=== PATIENT | female | born 1945 | race Caucasian/White ===

== ENCOUNTER 2016-08-01 15:02 | Emergency (ER) | payer MEDICARE, BC ==
[~2016-08-01] VITALS: Ht 162.6 cm; Wt 81.6 kg
[~2016-08-01 15:02] MED LIST: CARV-39 PO; HYDR12.58 PO; IPRA12.9 PO
[2016-08-01 15:04] VITALS: BP 157/75
[2016-08-01] MEDS ORDERED: LIDOCAINE 1%-EPI 1:100K, 20ML SQ ONE (15:30)
== END 2016-08-01 16:39 | disposition home or self-care (01) ==
LOC: ED 16:00
DX: L03.317 Cellulitis of buttock (principal); J44.9 Chronic obstructive pulmonary disease, unspecified; I10 Essential (primary) hypertension; Z90.710 Acquired absence of both cervix and uterus; Z90.49 Acquired absence of other specified parts of digestive tract; Z88.0 Allergy status to penicillin; Z87.891 Personal history of nicotine dependence; Z88.6 Allergy status to analgesic agent; Z88.5 Allergy status to narcotic agent
CPT/HCPCS: 99284

== ENCOUNTER 2017-05-04 11:21 | Emergency (ER) | payer MEDICARE, BC ==
[~2017-05-04] VITALS: Ht 165.1 cm; Wt 81.4 kg
[2017-05-04 11:23] VITALS: BP 136/74
[2017-05-04] MEDS ORDERED: ALBU0.63 NEB (12:01)
[2017-05-04] MEDS ORDERED: HOME 02 (12:02)
== END 2017-05-04 12:55 | disposition home or self-care (01) ==
LOC: ED 12:40
DX: S43.422A Sprain of left rotator cuff capsule, initial encounter (principal); Z90.49 Acquired absence of other specified parts of digestive tract; Z87.891 Personal history of nicotine dependence; I10 Essential (primary) hypertension; J44.9 Chronic obstructive pulmonary disease, unspecified; W01.0XXA Fall on same level from slipping, tripping and stumbling without subsequent striking against object, initial encounter; Y93.89 Activity, other specified; Y99.8 Other external cause status; Y92.89 Other specified places as the place of occurrence of the external cause
CPT/HCPCS: 99284

== ENCOUNTER 2018-04-20 09:43 | Emergency (ER) | payer MEDICARE, BC ==
[~2018-04-20] VITALS: Ht 162.6 cm; Wt 81.4 kg
[~2018-04-20 09:43] MED LIST changes: +ALBU0.63 NEB; +HOME 02; -HYDR12.58 PO; +HYDROCHLOROTH12.5 MG PO
--- NOTE | 2018-04-20 10:05 | NUR ---
First contact with pt. Per pt, "For a few days I havn't been feeling well, I have had some numbness on my right side (neck and arm)." Pt denies chest pain. Pt states, "I am a little short of breath". Pt denies loss of sensation, CMS intact. NADN. Pt states, "I feel this need to burp and I can't get it up. I get this all the time." All safety measures in place. Pt conencted to all monitors. Call light within reach.
[2018-04-20] MEDS ORDERED: LECI1200 PO (10:19)
[2018-04-20] MEDS ORDERED: CINN500C2 PO (10:19)
[2018-04-20] MEDS ORDERED: ASPI-496 PO (10:19)
[2018-04-20] MEDS ORDERED: CA C1TAB62 PO (10:19)
[2018-04-20] MEDS ORDERED: SODIUM CHLORIDE FLUSH 10ML SYR IVF ONE (10:30)
[2018-04-20 10:32] LABS: BASOPHILS # (AUTO) 0.08 x10^3/uL (0-0.1); BASOPHILS % (AUTO) 1 % (0-1); EOSINOPHILS # (AUTO) 0.13 x10^3/uL (0-0.4); EOSINOPHILS % (AUTO) 1 % (1-7); LYMPHOCYTES # (AUTO) 3.84 x10^3/uL (1-3.4); LYMPHOCYTES % (AUTO) 33 % (22-44); MD NO; MEAN CORPUSCULAR HEMOGLOBIN 31.3 pg (27.0-34.8); MEAN CORPUSCULAR HGB CONC 33.8 g/dL (32.4-35.8); MEAN CORPUSCULAR VOLUME 92.6 fL (80-100); MEAN PLATELET VOLUME 9.1 fL (7.4-10.4); MONOCYTES # (AUTO) 0.73 x10^3/uL (0.2-0.8); MONOCYTES % (AUTO) 6 % (2-9); NEUTROPHILS # (AUTO) 7.01 x10^3/uL (1.8-6.8); NEUTROPHILS % (AUTO) 60 % (42-75); PLATELET COUNT 255 x10^3/uL (130-400); RED BLOOD COUNT 4.57 x10^6/uL (3.82-5.3); RED CELL DISTRIBUTION WIDTH 13.9 % (9.6-15.2)
[2018-04-20 10:35] LABS: ALBUMIN 3.5 g/dL (3.4-5.0); ANION GAP 6 mmol/L (5-15); CALCIUM 9.4 mg/dL (8.5-10.1); CHLORIDE 106 mmol/L (98-107); CREATININE 0.63 mg/dL (0.55-1.02)
[2018-04-20 10:39] LABS: TROPONIN I < 0.015 ng/mL (0.000-0.045)
[2018-04-20] MEDS ORDERED: ACETAMINOPHEN 500 MG TABLET ONE (10:45)
--- NOTE | 2018-04-20 11:08 | NUR ---
Pt ambulates with steady gait and balance to restroom. No defecits observed.
[2018-04-20] MEDS ORDERED: LORazepam 2 MG/ML, 1ML IVPush ONE (12:00)
[2018-04-20] MEDS ORDERED: LORazepam 2 MG/ML, 1ML ONE (12:01)
[2018-04-20 13:54] VITALS: BP 137/67
--- NOTE | 2018-04-20 14:25 | NUR ---
Patient given discharge instructions and they have confirmed that they understand the instructions. Patient ambulatory with steady gait. Pt left with prescription, discharge paperwork, and all personal belongings.
== END 2018-04-20 14:27 | disposition home or self-care (01) ==
LOC: ED 11:52
DX: M50.121 Cervical disc disorder at C4-C5 level with radiculopathy (principal); R51 Headache; I10 Essential (primary) hypertension; Z87.891 Personal history of nicotine dependence
CPT/HCPCS: 36415; 70450; 70551; 71045; 72125; 80048; 82040; 84484; 85025; 93005; 96374; 99284; J2060

== ENCOUNTER 2018-10-24 13:08 | Outpatient (CLI) | payer MEDICARE, BC ==
[~2018-10-24 13:08] MED LIST changes: +ASPI-496 PO; +CA C1TAB62 PO; +CINN500C2 PO; -HOME 02; +HOME 02 INH; +LECI1200 PO
[2018-10-24 13:59] LABS: BASOPHILS # (AUTO) 0.07 x10^3/uL (0-0.1); BASOPHILS % (AUTO) 1 % (0-1); EOSINOPHILS # (AUTO) 0.36 x10^3/uL (0-0.4); EOSINOPHILS % (AUTO) 3 % (1-7); LYMPHOCYTES # (AUTO) 3.39 x10^3/uL (1-3.4); LYMPHOCYTES % (AUTO) 29 % (22-44); MD NO; MEAN CORPUSCULAR HEMOGLOBIN 30.7 pg (27.0-34.8); MEAN CORPUSCULAR HGB CONC 33.4 g/dL (32.4-35.8); MEAN CORPUSCULAR VOLUME 92.1 fL (80-100); MONOCYTES # (AUTO) 1.05 x10^3/uL (0.2-0.8); MONOCYTES % (AUTO) 9 % (2-9); NEUTROPHILS # (AUTO) 7.05 x10^3/uL (1.8-6.8); NEUTROPHILS % (AUTO) 59 % (42-75); PLATELET COUNT 249 x10^3/uL (130-400); RED BLOOD COUNT 4.55 x10^6/uL (3.82-5.3); RED CELL DISTRIBUTION WIDTH 13.5 % (9.6-15.2)
[2018-10-24 14:04] LABS: MICROSCOPIC NOT IND
[2018-10-24 14:10] LABS: ALANINE AMINOTRANSFERASE 33 U/L (12-78); ALBUMIN 3.7 g/dL (3.4-5.0); ANION GAP 7 mmol/L (5-15); CALCIUM 9.4 mg/dL (8.5-10.1); CHLORIDE 109 mmol/L (98-107); CREATININE 0.74 mg/dL (0.55-1.02)
[2018-10-24 14:12] LABS: ALKALINE PHOSPHATASE 114 U/L (45-117); BILIRUBIN,TOTAL 0.7 mg/dL (0.2-1.0); TOTAL PROTEIN 7.3 g/dL (6.4-8.2)
[2018-11-07] MEDS ORDERED: HYDROCHLOROTH12.5 MG PO (10:29)
[2018-11-07] MEDS ORDERED: BECL10.62 IH (10:29)
[2018-11-07] MEDS ORDERED: [UNRECOGNIZED DRUG - OTHER] PO (10:29)
[2018-11-07] MEDS ORDERED: METF500T17 PO (10:29)
[2018-11-07] MEDS ORDERED: CARB15DR5 EACHEYE (10:29)
[2018-11-07] MEDS ORDERED: TURMERIC PO (10:29)
[2018-11-07] MEDS ORDERED: MAGN400T7 PO (10:29)
[2018-11-07] MEDS ORDERED: CARV-39 PO (10:29)
== END 2018-10-24 23:59 | disposition home or self-care (01) ==
LOC: RAD 13:08 → LAB 23:59
PROVIDERS: ATTEND Family Medicine
DX: Z01.818 Encounter for other preprocedural examination (principal); I70.0 Atherosclerosis of aorta; I10 Essential (primary) hypertension; R53.83 Other fatigue
CPT/HCPCS: 36415; 71046; 80053; 81003; 85025

== ENCOUNTER 2018-11-07 09:29 | Outpatient (CLI) | payer MEDICARE, BC | END 2018-11-07 23:59 | disposition home or self-care (01) | LOC: STAR 09:29 | PROVIDERS: ATTEND Neurological Surgery | DX: Z01.818 Encounter for other preprocedural examination (principal); M48.061 Spinal stenosis, lumbar region without neurogenic claudication; Z98.890 Other specified postprocedural states | CPT/HCPCS: 36415; 85610; 85730 ==